=== PATIENT | female | born 1990 | race Caucasian/White ===

== ENCOUNTER 2017-04-29 23:33 | Emergency (ER) | payer OTHER ==
[~2017-04-29] VITALS: Ht 157.5 cm; Wt 64.5 kg
[~2017-04-29 23:33] MED LIST: NAPR-260 PO
[2017-04-30 00:07] VITALS: Ht 157.5 cm; Wt 64.5 kg
[2017-04-30] MEDS ORDERED: IBUPROFEN 600 MG TAB PO ONE (02:30)
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
--- NOTE | 2017-04-30 04:26 | RADRPT ---
PROCEDURE: XR Lumbar Spine. CLINICAL INDICATION: Trauma. TECHNIQUE: X-ray of the lumbar spine were performed including AP, lateral, and coned L5-S1 views w as performed. COMPARISON: No prior studies are available for comparison. FINDINGS: Vertebral body stature and alignment maintained. There is no evidence of fracture or subluxation. IMPRESSION: No evidence of compression fracture. RPTAT: HIKT .Win Acosta MD, MD Date Time Electronically viewed and signed by .Win Acosta MD, on 04/30/2017 04:26 .T/
[2017-04-30] MEDS ORDERED: IBUP-1542 PO (04:35)
[2017-04-30 04:52] VITALS: BP 121/64; PULSE 66; RESP 20
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
== END 2017-04-30 04:53 | disposition home or self-care (01) ==
LOC: FTE 23:33
DX: S39.012A Strain of muscle, fascia and tendon of lower back, initial encounter (principal); S30.1XXA Contusion of abdominal wall, initial encounter; V49.50XA Passenger injured in collision with unspecified motor vehicles in traffic accident, initial encounter
CPT/HCPCS: 72100; 76700; Z7502; Z7610